=== PATIENT | male | born 1960 | race Asian ===

== ENCOUNTER 2019-08-05 23:56 | Emergency (ER) | payer OTHER ==
[~2019-08-05] VITALS: Ht 167.6 cm; Wt 81.6 kg
[2019-08-05 23:56] VITALS: BP 140/93; TEMP 97.7
== END 2019-08-06 00:18 ==
LOC: ED 23:56
PROC: 0HQGXZZ Repair Left Hand Skin, External Approach (ICD-10-PCS; principal; 2019-08-05)
DX: S61.213A Laceration without foreign body of left middle finger without damage to nail, initial encounter (principal); X99.8XXA Assault by other sharp object, initial encounter
CPT/HCPCS: 90471; 90715; 99282